=== PATIENT | male | born 1950 | race Caucasian/White ===

== ENCOUNTER 2020-04-26 13:43 | Inpatient (IN) | payer MEDICARE ==
[~2020-04-26] VITALS: Ht 177.8 cm; Wt 79.0 kg
[2020-04-26 13:24] VITALS: BP 156/93
[2020-04-26] MEDS ORDERED: DOCUSATE 100 MG CAPSULE PO PRN (14:30)
[2020-04-26] MEDS ORDERED: ONDANSETRON 2MG/ML, 2ML IVPush PRN (14:30)
[2020-04-26] MEDS ORDERED: ACETAMINOPHEN 325 MG TABLET PO PRN (14:30)
[2020-04-26] MEDS ORDERED: morphine SULFATE 10 MG/ML, 1ML IVPush PRN (14:30)
[2020-04-26] MEDS ORDERED: hydrALAzine 20 MG/ML, 1ML IVPush PRN (14:30)
[2020-04-26] MEDS: HEPARIN 5,000 UNITS/ML, 1ML SQ SCH ×2 (15:32→22:10)
[2020-04-26 15:46] LABS: TROPONIN I 0.022 ng/mL (0.000-0.045)
[2020-04-26] MEDS ORDERED: CARVEDILOL 3.125 MG TABLET PO SCH (18:00)
[2020-04-26 20:27] VITALS: BP 124/82
[2020-04-26 20:52] LABS: TROPONIN I 0.031 ng/mL (0.000-0.045)
[2020-04-26] MEDS ORDERED: ATORVASTATIN 40 MG TABLET PO SCH (21:00)
[2020-04-27 04:38] VITALS: BP 123/71
[2020-04-27 05:54] LABS: ANION GAP 6 mmol/L (5-15); CHLORIDE 108 mmol/L (98-107); CHOLESTEROL, TOTAL 215 mg/dL (140-239); CREATININE 1.12 mg/dL (0.7-1.3); TRIGLYCERIDES 117 mg/dL (50-200); VLDL CHOLESTEROL 23 mg/dL (0-25)
[2020-04-27] MEDS ORDERED: ASPIRIN 325 MG TABLET PO SCH ×2 (06:00→09:00)
[2020-04-27 06:04] LABS: CHOL/HDL RATIO 4.8; HDL CHOL % 21 % (26-37); HDL CHOLESTEROL (DIRECT) 45 mg/dL (40-60); LDL CHOLESTEROL,CALCULATED 147 mg/dL (54-169); LDL/HDL RATIO 3.3 (0.5-3.0)
[2020-04-27 06:09] LABS: BASOPHILS # (AUTO) 0.04 x10^3/uL (0-0.1); BASOPHILS % (AUTO) 1 % (0-1); EOSINOPHILS # (AUTO) 0.14 x10^3/uL (0-0.4); EOSINOPHILS % (AUTO) 2 % (1-7); LYMPHOCYTES # (AUTO) 1.45 x10^3/uL (1-3.4); LYMPHOCYTES % (AUTO) 22 % (22-44); MD NO; MEAN CORPUSCULAR HEMOGLOBIN 31.6 pg (27.5-34.5); MEAN CORPUSCULAR HGB CONC 32.5 g/dL (33.2-36.2); MEAN PLATELET VOLUME 9.1 fL (7.4-10.4); MONOCYTES % (AUTO) 9 % (2-9); NEUTROPHILS # (AUTO) 4.53 x10^3/uL (1.8-6.8); NEUTROPHILS % (AUTO) 67 % (42-75); PLATELET COUNT 205 x10^3/uL (130-400); RED BLOOD COUNT 4.95 x10^6/uL (4.38-5.82); RED CELL DISTRIBUTION WIDTH 13.4 % (9.4-14.8)
[2020-04-27] MEDS: HEPARIN 5,000 UNITS/ML, 1ML SQ SCH ×3 (06:30→22:30)
[2020-04-27 07:03] VITALS: BP 134/81
[2020-04-27] MEDS: LISINOPRIL 10 MG TABLET PO SCH (08:44)
[2020-04-27] MEDS ORDERED: LISINOPRIL 10 MG TABLET PO SCH (09:00)
[2020-04-27] MEDS: ASPIRIN 81 MG TABLET EC PO SCH (09:00)
[2020-04-27] MEDS: SODIUM CHLORIDE 0.9% 1,000 ML IV SCH (12:00)
[2020-04-27 13:30] VITALS: BP 123/80
[2020-04-27 18:48] LABS: INTERNATIONAL NORMALIZED RATIO 1.01 (0.93-1.1); PROTHROMBIN TIME 10.7 Seconds (9.6-11.5)
[2020-04-27 21:45] VITALS: BP 125/74
[2020-04-27] MEDS: ATORVASTATIN 80 MG TABLET PO SCH (21:52)
[2020-04-28] MEDS: SODIUM CHLORIDE 0.9% 1,000 ML IV SCH (04:34)
[2020-04-28 06:18] VITALS: BP 132/88
[2020-04-28] MEDS: HEPARIN 5,000 UNITS/ML, 1ML SQ SCH (06:30)
[2020-04-28 06:58] VITALS: BP 136/87
[2020-04-28] MEDS: ASPIRIN 81 MG TABLET EC PO SCH (08:47)
[2020-04-28] MEDS: LISINOPRIL 10 MG TABLET PO SCH (08:47)
[2020-04-28] MEDS ORDERED: SODIUM CHLORIDE 0.9% 1,000 ML IV SCH ×2 (11:00→13:54)
[2020-04-28] MEDS ORDERED: LIDOCAINE-MPF 1%, 5ML ONE (12:26)
[2020-04-28] MEDS ORDERED: MIDAZOLAM 1 MG/ML, 2ML ONE ×2 (12:26→13:39)
[2020-04-28] MEDS ORDERED: FENTANYL PF 100 MCG/2ML ONE (12:26)
[2020-04-28] MEDS ORDERED: VERAPAMIL 2.5 MG/ML, 2ML ONE (12:26)
[2020-04-28] MEDS ORDERED: HEPARIN 1,000 UNITS/ML, 10ML ONE (12:27)
[2020-04-28] MEDS ORDERED: BIVALIRUDIN 250 MG ONE ×2 (13:39→13:51)
[2020-04-28] MEDS ORDERED: TICAGRELOR 90 MG TABLET ONE (13:50)
[2020-04-28] MEDS ORDERED: BIVALIRUDIN 250 MG in SODIUM CHLORIDE 0.9% 50 ML IV SCH (13:54)
[2020-04-28 15:54] VITALS: BP 115/72
[2020-04-28 18:57] VITALS: BP 128/89
[2020-04-28] MEDS: ATORVASTATIN 80 MG TABLET PO SCH (21:18)
[2020-04-28] MEDS: TICAGRELOR 90 MG TABLET PO SCH (21:18)
[2020-04-29 00:50] VITALS: BP 129/83
[2020-04-29 03:43] LABS: BASOPHILS # (AUTO) 0.02 x10^3/uL (0-0.1); BASOPHILS % (AUTO) 0 % (0-1); EOSINOPHILS % (AUTO) 1 % (1-7); LYMPHOCYTES # (AUTO) 0.81 x10^3/uL (1-3.4); LYMPHOCYTES % (AUTO) 9 % (22-44); MD NO; MEAN CORPUSCULAR HGB CONC 33.7 g/dL (33.2-36.2); MONOCYTES # (AUTO) 0.73 x10^3/uL (0.2-0.8); MONOCYTES % (AUTO) 8 % (2-9); NEUTROPHILS # (AUTO) 7.13 x10^3/uL (1.8-6.8); NEUTROPHILS % (AUTO) 81 % (42-75); PLATELET COUNT 192 x10^3/uL (130-400); RED BLOOD COUNT 4.98 x10^6/uL (4.38-5.82); RED CELL DISTRIBUTION WIDTH 12.9 % (9.4-14.8)
[2020-04-29 03:53] LABS: ALBUMIN 3.2 g/dL (3.4-5.0); ANION GAP 8 mmol/L (5-15); CALCIUM 8.6 mg/dL (8.5-10.1); CHLORIDE 111 mmol/L (98-107)
[2020-04-29 03:59] LABS: ALANINE AMINOTRANSFERASE 22 U/L (12-78); ALKALINE PHOSPHATASE 80 U/L (45-117); BILIRUBIN,TOTAL 1.4 mg/dL (0.2-1.0); CREATINE KINASE, TOTAL 48 U/L (39-308); CREATININE 1.07 mg/dL (0.7-1.3); TROPONIN I 0.268 ng/mL (0.000-0.045)
[2020-04-29 06:52] VITALS: BP 136/85
[2020-04-29] MEDS: TICAGRELOR 90 MG TABLET PO SCH (08:31)
[2020-04-29] MEDS: LISINOPRIL 10 MG TABLET PO SCH (08:31)
[2020-04-29] MEDS: ASPIRIN 81 MG TABLET EC PO SCH (08:31)
[2020-04-29] MEDS ORDERED: ASPIRIN 81 MG TABLET EC PO SCH (09:00)
[2020-04-29] MEDS ORDERED: MAGNESIUM OXIDE 400 MG TABLET PO SCH (10:00)
[2020-04-29 11:34] LABS: TROPONIN I 0.459 ng/mL (0.000-0.045)
[2020-04-29] MEDS ORDERED: TICA90TA PO (11:41)
[2020-04-29] MEDS ORDERED: ATOR-2 PO (11:41)
[2020-04-29] MEDS ORDERED: MAGN400T50 PO (11:41)
[2020-04-29] MEDS ORDERED: ASPI81TA45 PO (11:41)
[2020-04-29] MEDS ORDERED: LISI-167 PO (11:41)
== END 2020-04-29 14:03 | disposition home or self-care (01) | DRG 247 ==
LOC: 5SO 13:48
PROVIDERS: ADMIT Internal Medicine Cardiovascular Disease; ATTEND Internal Medicine
PROC: 4A023N7 Measurement of Cardiac Sampling and Pressure, Left Heart, Percutaneous Approach (ICD-10-PCS; principal; 2020-04-28)
PROC: 027034Z Dilation of Coronary Artery, One Artery with Drug-eluting Intraluminal Device, Percutaneous Approach (ICD-10-PCS; 2020-04-28)
PROC: B215YZZ Fluoroscopy of Left Heart using Other Contrast (ICD-10-PCS; 2020-04-28)
PROC: B211YZZ Fluoroscopy of Multiple Coronary Arteries using Other Contrast (ICD-10-PCS; 2020-04-28)
DX: I25.110 Atherosclerotic heart disease of native coronary artery with unstable angina pectoris (principal); I24.9 Acute ischemic heart disease, unspecified; I47.2 Ventricular tachycardia; I50.32 Chronic diastolic (congestive) heart failure; E78.5 Hyperlipidemia, unspecified; E80.4 Gilbert syndrome; G47.33 Obstructive sleep apnea (adult) (pediatric); I11.0 Hypertensive heart disease with heart failure; I70.0 Atherosclerosis of aorta; Z87.891 Personal history of nicotine dependence
CPT/HCPCS: 36415; 80048; 80053; 80061; 82550; 83036; 83735; 84100; 84443; 84484; 85025; 85610; 93005; 93306; 93458; 99156; 99157; C1769; C1894; C9600; G0378; J0583; J1644; J2250; J3010; C1725; C1874; C1887; J7030; Q9967

== ENCOUNTER → 2021-04-17 | Outpatient (CLI) | payer MEDICARE ==
[~2021-04-17] MED LIST: ASPI81TA45 PO; ATOR-2 PO; LISI-167 PO; MAGN400T50 PO; TICA90TA PO
== END | disposition home or self-care (01) ==
LOC: STAR 12:06
PROVIDERS: ATTEND Surgery
DX: Z01.818 Encounter for other preprocedural examination (principal); K40.20 Bilateral inguinal hernia, without obstruction or gangrene, not specified as recurrent; I45.10 Unspecified right bundle-branch block
CPT/HCPCS: 93005

== ENCOUNTER 2021-04-22 13:32 | Day surgery (SDC) | payer MEDICARE ==
[~2021-04-22] VITALS: Ht 177.8 cm; Wt 77.3 kg
[~2021-04-22 13:32] MED LIST changes: +BUPIVACAINE/PF 0.5% ONE; +CEFAZOLIN 1,000 MG ONE; +EPINEPHRINE 1 MG/ML, 1ML ONE; +FENTANYL PF 250 MCG/5ML ONE; +GLYCOPYRROLATE 0.2MG/1ML, 5ML ONE; +NEOSTIGMINE 1 MG/ML, 10ML ONE; +PROPOFOL 10 MG/ML, 20ML ONE; +ROCURONIUM 10MG/ML,5ML ONE
[2021-04-22 14:13] VITALS: BP 133/77
[2021-04-22] MEDS ORDERED: CHLORHEXIDINE 15 ML UDC ONE (14:15)
[2021-04-22] MEDS ORDERED: CHLORHEXIDINE 15 ML UDC PO ONE (14:30)
[2021-04-22] MEDS ORDERED: LACTATED RINGERS 1,000 ML IV SCH (14:30)
[2021-04-22] MEDS ORDERED: PHENYLEPHRINE 10 MG/ML ONE (14:46)
[2021-04-22] MEDS ORDERED: ONDANSETRON 2MG/ML, 2ML IVPush PRN (15:00)
[2021-04-22] MEDS ORDERED: ACETAMINOPHEN 325 MG TABLET PO PRN (15:00)
[2021-04-22] MEDS ORDERED: LABETALOL 5MG/ML, 20ML IV PRN (15:00)
[2021-04-22] MEDS ORDERED: MEPERIDINE/PF 25MG/0.5ML IVPush PRN (15:00)
[2021-04-22] MEDS ORDERED: hydrALAzine 20 MG/ML, 1ML IV PRN (15:00)
[2021-04-22] MEDS ORDERED: OXYcodone 5 MG/5 ML ORAL.SOL UDC PO PRN (15:00)
[2021-04-22] MEDS ORDERED: morphine SULFATE 10 MG/ML, 1ML IVPush PRN (15:00)
[2021-04-22] MEDS ORDERED: BUPIVACAINE/PF-EPI 0.5% 1:200K INFIL ONE (15:01)
[2021-04-22] MEDS ORDERED: FENTANYL PF 100 MCG/2ML ONE (16:03)
[2021-04-22] MEDS ORDERED: OXYcodone 5 MG/5 ML ORAL.SOL UDC ONE (16:03)
[2021-04-22] MEDS ORDERED: HYDROmorphone 1 MG/ML, 1ML INJ ONE (16:03)
[2021-04-22] MEDS: FENTANYL PF 100 MCG/2ML IV PRN ×2 (16:04→16:12)
[2021-04-22] MEDS: HYDROmorphone 1 MG/ML, 1ML INJ IVPush PRN ×2 (16:15→16:35)
== END 2021-04-22 19:20 | disposition home or self-care (01) ==
LOC: OR 13:32
PROVIDERS: ATTEND Surgery
DX: K40.20 Bilateral inguinal hernia, without obstruction or gangrene, not specified as recurrent (principal); I25.10 Atherosclerotic heart disease of native coronary artery without angina pectoris; E78.5 Hyperlipidemia, unspecified; Z79.82 Long term (current) use of aspirin; Z79.899 Other long term (current) drug therapy; Z95.5 Presence of coronary angioplasty implant and graft
CPT/HCPCS: 49650; C1781; J0171; J0690; J1170; J2370; J2704; J2710; J3010; J7120